=== PATIENT | female | born 1940 | race Hispanic/Latino ===

== ENCOUNTER → 2022-12-13 | Outpatient (CLI) | payer OTHER, MEDICARE ==
[~2022-12-13] MED LIST: IOHEXOL-350 75 ML VIAL IV ONE
== END | disposition home or self-care (01) ==
LOC: RAH 11:12
PROVIDERS: ATTEND Internal Medicine
DX: J39.2 Other diseases of pharynx (principal); R13.10 Dysphagia, unspecified; E07.89 Other specified disorders of thyroid; M47.812 Spondylosis without myelopathy or radiculopathy, cervical region; M48.02 Spinal stenosis, cervical region
CPT/HCPCS: 70491; Q9967